=== PATIENT | female | born 1995 | race Caucasian/White ===

== ENCOUNTER 2016-07-23 12:44 | Emergency (ER) | payer MEDICAID ==
[~2016-07-23] VITALS: Ht 154.9 cm; Wt 63.5 kg
[~2016-07-23 12:44] MED LIST: ATIVAN0.5 MG PO; BACTRIM DS 800/1 TAB PO; DOLOPHINE10 MG PO
[2016-07-23 13:01] VITALS: BP 114/75
--- NOTE | 2016-07-23 14:13 | NUR ---
Patient ambulated to bed 06.
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
--- NOTE | 2016-07-23 14:44 | NUR ---
Dr. Muñoz evaluating patient at bedside.
[2016-07-23 15:15] VITALS: BP 118/80
== END 2016-07-23 15:15 | disposition home or self-care (01) ==
LOC: MED 12:44
DX: M62.830 Muscle spasm of back (principal)